=== PATIENT | female | born 1975 | race Caucasian/White ===

== ENCOUNTER → 2018-10-08 | Outpatient (CLI) | payer OTHER ==
--- NOTE | 2018-10-22 20:50 | SLEEP ---
[address] [address] SLEEP STUDY REPORT Name: ISMAEL PLASCENCIA Room: [facility]#: [id number] Admission: 10/08/18 Attend Phys: Brandon Scott Discharge: Date of : 75 Report #: [id number] THIS REPORT FOR: //name// CC: Rhianna Hunt DO This study has been reviewed in its entirety by a board certified sleep specialist DATE OF SERVICE: 10/08/2018 ATTENDING PHYSICIAN: Rhianna Hunt DO. The patient is a 43-year-old who weighs 173 pounds with a BMI of 28.8. The patient's [place] score was 12. The patient underwent home sleep study performed at [facility]. Total recording time was 519 minutes. During the night study, patient has 52 obstructive apneas, no central or mixed apneas and 7 hypopneas. The patient's apnea-hypopnea index was 6.8 per hour. Supine sleep, not recorded. Nocturnal oximetry study revealed an average oxygen saturation 95% with lowest of 87%. No significant desaturation was observed. Mean heart rate was 72 beats per minute. IMPRESSION: 1. Mild sleep apnea-hypopnea syndrome with an AHI of 6.8 per hour. 2. No clinically significant nocturnal hypoxia. RECOMMENDATIONS: 1. The patient has mild sleep apnea. I would recommend weight loss as the initial form of treatment. 2. The patient should be followed up for any persistent daytime somnolence despite effective weight loss. If symptoms persist, then patient's sleep apnea should be treated with either an oral appliance as recommended by the dentist versus a trial of CPAP titration. 3. Avoid REGISTERED MIDWIFE depressants. 4. Cautioned regarding driving until symptoms of sleep apnea resolve with the above recommendations. <ELECTRONICALLY SIGNED> By: Senthil Elena MD 10/22/180 1608 1848Aephraim Elena MD /nt
== END ==
LOC: M.SLEEPLAB 10-03 15:00
DX: G47.30 Sleep apnea, unspecified (principal); Z88.8 Allergy status to other drugs, medicaments and biological substances; Z88.5 Allergy status to narcotic agent; Z82.49 Family history of ischemic heart disease and other diseases of the circulatory system; Z83.3 Family history of diabetes mellitus; Z81.8 Family history of other mental and behavioral disorders; Z83.49 Family history of other endocrine, nutritional and metabolic diseases